=== PATIENT | female | born 1935 | race Caucasian/White ===

== ENCOUNTER 2016-11-27 15:15 | Emergency (ER) | payer MEDICARE, OTHER ==
[~2016-11-27] VITALS: Ht 152.4 cm; Wt 68.2 kg
[~2016-11-27 15:15] MED LIST: AMLO-39 PO; CITA40TA13 PO; DIPH1TAB PO; ECOTRIN PO; INSU100V7 SUBQ; PIOG15TA3 PO; TAM75UDCAP PO; TRAM50TA2 PO; tylenol PM PO
[2016-11-27 15:19] VITALS: BP 148/56; PULSE 80; RESP 16; O2SAT 96
[2016-11-27 15:47] LABS: BASOPHILS % (AUTO) 0.2 % (0-3); MONOCYTES % (AUTO) 7.5 % (4-12); Mean Corpuscular Hemoglobin 32.7 pg (27.0-35.0); Platelet Count 194 bil/L (150-400)
--- NOTE | 2016-11-27 15:53 | DRSVH ---
PROCEDURE: X-RAY CHEST ONE VIEW, PORTABLE ([id number]) INDICATIONS: CHEST PAIN TECHNIQUE: One view of the chest was acquired. COMPARISON: [facility], CR, XR CHEST 2VW, 08/30/2016, 20:28. FINDINGS: Surgical changes and devices: Postoperative changes are present related to a prior median sternotomy. Lungs and pleura: The aeration of the lungs is somewhat to the previous exam. No lobar consolidation , effusion, or pneumothorax is evident. Interstitial prominence within the infrahilar regions is pre sent. There may be pleural calcifications at the diaphragms. No large effusion or pneumothorax is e vident. Mediastinum: Mediastinal contours appear normal. Heart size is normal. There is aortic atheroscler osis. Bones and chest wall: No suspicious bony lesions. Degenerative changes of the imaged osseous struct ures are noted including shoulders and spine. Overlying soft tissues appear unremarkable. IMPRESSION: Mild bibasilar interstitial prominence is similar to the prior study and probably related to chronic lung changes. However, superimposed atypical pneumonia or mild edema cannot be excluded and clinical correlation is recommended. Dictated by: Gary Baugh M.D. on 11/27/2016 at 14:50 Approved by: Gary Baugh M.D. on 11/27/2016 at 14:51
--- NOTE | 2016-11-27 16:01 | ED.REPORT ---
HPI-Chest Pain 40 and Over Date of Service Nov 27, 2016 ED Provider: Jadon Palmer DO Patient is an 81 year old female with an extensive cardiac history who presents to the ED via EMS complaining of an 10-15 minute episode of 10/10 substernal chest pain after eating just prior to arrival. She is now pain free after an episode of belching. Associated symptoms include some abdominal tenderness. She denies vomiting, back pain, diaphoresis, or any other symptoms. She has had similar chest pain previously accompanied by vomiting. Nursing Notes Stated Complaint: CHEST PAIN Chief Complaint: Chest Pain Nursing Notes Reviewed: Yes Allergies: Coded Allergies: Penicillins (Verified Allergy, Severe, HIVES NOT ALLERGIC TO PROPOXYPHENE, 11/27/16) naproxen (Verified Allergy, Severe, RASH, 11/27/16) Sulfa (Sulfonamide Antibiotics) (Verified Allergy, Unknown, 11/27/16) amitriptyline (Verified Adverse Reaction, Severe, SOMNOLENCE, 11/27/16) hydromorphone (Verified Adverse Reaction, Severe, N/V, 11/27/16) Scheduled ([Ecotrin]) 325 MG PO DAILY Amlodipine (Norvasc) 5 Mg Tablet 10 MG PO DAILY Citalopram (Citalopram) 40 Mg Tablet 40 MG PO DAILY Insulin Glargine (Lantus U100 Insulin Vial) 100 Unit/Ml Vial 26 UNIT SUBQ QPM Oseltamivir Phosphate (Tamiflu) 75 Mg Capsule 75 MG PO BID Pioglitazone (Actos) 15 Mg Tablet 15 MG PO BID Scheduled PRN ([tylenol PM]) 325 MG PO PRN PRN PRN For Sleep Diphenoxylate/Atropine 2.5-0.025 mg (Lomotil 2.5-0.025 mg) 1 Each Tablet 1-2 TABLET PO QID PRN PRN For Diarrhea or Loose Stool Tramadol (Tramadol) 50 Mg Tablet 50 MG PO HS PRN PRN For Pain General Time Seen by MD: 16:00 Chief Complaint Chest pain Hx Obtained From: Patient, Other family... Arrived By: Ambulance Sudden in Onset?: Yes Onset Occurred: Just prior to arrival Symptom Duration: 1 - 15 minutes Similar Sx Previous: Yes Risk Factors )( CAD Risk Stratification Known CAD Risk factors N/A )( TAD Risk Stratification HypertensionNo Risk factors reviewed )( PE Risk Stratification No , No , No Previous DVT, No Previous PE Risk factors reviewed Past Medical History Past Medical History Myocardial Infarction Arthritis Reports: Coronary artery disease, Diabetes mellitus, GERD, Hyperlipidemia, Hypertension Reports: Depression Past Surgical History Stent placement x2 AVR - porcine valve CABG x3 Left trigger-thumb Reports: Appendectomy, Cataract surgery, Cholecystectomy, Hysterectomy Smoking History Never Smoker Social History Alcohol Use: Denies alcohol use Drug Use: Denies drug use Other Social History: Good social support, Local resident Ambulatory Status Independent Review of Systems Cardiovascular: Reports: Chest pain GI: Reports: Abdominal pain, Denies: Vomiting Musculoskeletal: Denies: Back pain Skin: Denies Diaphoresis Complete sys rev & neg: except as marked. Physical Exam Initial Vital Signs Vital Signs (First) Date Time Temp Pulse Resp B/P Pulse Ox O2 Delivery O2 Flow Rate FiO2 11/27/16 15:19 36.5 80 16 148/56 96 Room Air Initial VS: Reviewed Head / Eyes: Atraumatic, Normocephalic Neck: Full range of motion Skin: Warm, Dry Neurologic: Alert, Oriented, Nonfocal Psychiatric: Mood/affect normal, Behavior normal, Normal thought content General/Constitutional: Awake, Alert, No acute distress, Well appearing, Well developed Respiratory / Chest: Breath sounds NL, Breath sounds = bilat, No respiratory distress Cardiovascular: Peripheral circulation NL Heart Sounds / Murmur: Positive: Systolic murmur present.. Faint systolic injection murmur Abdomen: Soft Tenderness/Guarding/Rebound: Positive: Tender epigastric (Mild ) Interpretation & Diagnostics Lab Results Interpretation Result Diagram: 11/27/16 1544 11/27/16 1544 Test 11/27/16 15:44 11/27/16 16:53 White Blood Count 8.9th/mm3 (3.8-10.1) Red Blood Count 4.56mil/mm3 (3.90-5.20) Hemoglobin 14.9g/dL (12.0-15.6) Hematocrit 44.7% (35.0-46.0) Mean Corpuscular Volume 98.0fL (81-100) Mean Corpuscular Hemoglobin 32.7pg (27.0-35.0) Mean Corpuscular Hemoglobin Concent 33.3% (32.0-37.0) Red Cell Distribution Width 13.3% (12.3-15.4) Platelet Count 194bil/L (150-400) Neutrophils (%) (Auto) 48.0% (40-74) Lymphocytes (%) (Auto) 43.1% (14-46) Monocytes (%) (Auto) 7.5% (4-12) Eosinophils (%) (Auto) 1.0% (0-5) Basophils (%) (Auto) 0.2% (0-3) D-Dimer 0.76mg/L FEU (<0.50) Sodium Level 138mEq/L (134-144) Potassium Level 3.7mEq/L (3.5-5.2) Chloride Level 96mEq/L (97-108) Carbon Dioxide Level 23mmol/L (18-29) Blood Urea Nitrogen 25mg/dL (8-27) Creatinine 1.41mg/dL (0.57-1.00) Estimat Glomerular Filtration Rate 51mL/min (>59) Glucose Level 142mg/dL (60-99) Calcium Level 10.1mg/dL (8.5-10.1) Magnesium Level 2.0mg/dL (1.6-2.6) Total Bilirubin 0.4mg/dL (0.0-1.2) Aspartate Amino Transf (AST/SGOT) 107U/L (0-50) Alanine Aminotransferase (ALT/SGPT) 39U/L (0-32) Alkaline Phosphatase 95U/L (25-165) Troponin T < 0.010ug/L (0.0-0.011) Total Protein 7.7g/dL (6.4-8.4) Albumin 4.1g/dL (3.4-5.0) Lipase 15U/L (13-60) Hold Goodrich Top Tube Received (Received) ECG Interpretation ECG Interpretation: LBBB rate 77 Time: 15:35 Interpreted by: ED physician X-Ray Chest Interpretation Chest Xray Interpretation: IMPRESSION: Mild bibasilar interstitial prominence is similar to the prior study and probably related to chronic lung changes. However, superimposed atypical pneumonia or mild edema cannot be excluded and clinical correlation is recommended. Dictated by: Gary Baugh M.D. on 11/27/2016 at 14:50 Approved by: Gary Baugh M.D. on 11/27/2016 at 14:51 View: Portable, 1 view Interpretation / Wet Read by: Interpret - Radiologist Re-Eval/Medical Decision Med Decision/Clinical Course I feel that Mrs. Ferrara needs a CT of her chest abdomen and pelvis as well as serial enzymes most likely hospitalization. As it where she has her granddaughter I believe was performing him some sort of plate and she is absolutely going to this. I saw her she was walking out of the hospital. She promises me she will return for the scans and return return for repeat troponin. I certainly could not make her stay and I can completely respect her wanting to be a part of her family's life and I will see her when she gets back. Time of Eval: 16:30 Re-Evaluation/Progress Note: Patient wishes to leave to attend play for grandchild. Will return for addition examination after the play. Counseled Regarding: Diagnosis, Need for follow-up, When/why to return to ED Discharge & Departure Shift Change Sign-Out Response to Therapy: Improved Primary Impression: Chest pain Chest pain type: unspecified Qualified Code: R07.9 - Chest pain, unspecified Additional Impression: Abdominal pain Abdominal location: epigastric Qualified Code: R10.13 - Epigastric pain Disposition: Home Discharge Condition All VS Reviewed: Yes Condition: Stable Referrals: Rahul Webb MD (PCP) Scribe Attestation Portions of this note were transcribed by Chana Olivarez. I, Dr. Palmer personally performed the history, physical exam and medical decision-making; I reviewed and confirmed the accuracy of the information in the transcribed note. Signed by: Chana Olivarez 11/27/16, [id number] copies to: Rahul Webb MD, Todd P DO Nov 27, 2016 16:01 CHANA OLIVAREZ Nov 27, 2016 16:25
[2016-11-27 16:12] LABS: TROPONIN T < 0.010 ug/L (0.0-0.011)
[2016-11-27 16:58] VITALS: BP 151/56; PULSE 82; RESP 24; O2SAT 97
[2016-11-27] MEDS ORDERED: FURO40TA4 PO (23:46)
[2016-11-27] MEDS ORDERED: ATOR80TA PO (23:46)
[2016-11-27] MEDS ORDERED: POTA10TA38 PO (23:46)
[2016-11-27] MEDS ORDERED: ACET-2605 PO (23:54)
[2016-11-27] MEDS ORDERED: ASPI-973 PO (23:54)
[2016-11-27] MEDS ORDERED: NITR0.4T6 SL (23:54)
[2016-11-27] MEDS ORDERED: SENN-133 PO (23:54)
[2016-11-27] MEDS ORDERED: OMEP40CA36 PO (23:54)
[2016-11-27] MEDS ORDERED: MELA1TAB16 PO ×2 (23:54→23:56)
[2016-11-27] MEDS ORDERED: CALC600T20 PO (23:54)
[2016-11-27] MEDS ORDERED: INSU100I18 SUBQ (23:54)
[2016-11-27] MEDS ORDERED: MV-M1TAB38 PO (23:54)
[2016-11-27] MEDS ORDERED: ACET325T51 PO (23:54)
[2016-11-27] MEDS ORDERED: DOCU250C2 PO (23:54)
== END 2016-11-27 16:59 | disposition home or self-care (01) ==
LOC: SED 15:15 → EDBD 15:15 → SED 16:59
DX: R07.9 Chest pain, unspecified (principal); R10.13 Epigastric pain; I25.2 Old myocardial infarction; I25.10 Atherosclerotic heart disease of native coronary artery without angina pectoris; E11.9 Type 2 diabetes mellitus without complications; K21.9 Gastro-esophageal reflux disease without esophagitis; E78.5 Hyperlipidemia, unspecified; I10 Essential (primary) hypertension; F32.9 Major depressive disorder, single episode, unspecified; Z95.818 Presence of other cardiac implants and grafts; Z95.1 Presence of aortocoronary bypass graft; Z95.2 Presence of prosthetic heart valve; Z79.4 Long term (current) use of insulin; Z88.0 Allergy status to penicillin; Z88.6 Allergy status to analgesic agent; Z88.2 Allergy status to sulfonamides; Z88.5 Allergy status to narcotic agent; Z88.8 Allergy status to other drugs, medicaments and biological substances

== ENCOUNTER 2016-11-27 21:41 | Observation (INO) | payer MEDICARE, OTHER ==
[~2016-11-27] VITALS: Ht 152.4 cm; Wt 71.3 kg
[2016-11-27 21:49] VITALS: BP 139/67; PULSE 84; RESP 20; O2SAT 100
--- NOTE | 2016-11-27 22:00 | ED.REPORT ---
HPI-Abd Pain F 40 and Over Date of Service Nov 27, 2016 ED Provider: Jadon Palmer Patient is an 81 year old female who returns to the ED after having to leave before her imaging earlier this evening for chest pain. She had a 10-15 minute episode of severe substernal chest pain without vomiting, diaphoresis, or any other symptoms. He symptoms resolved after an episode of belching. Her pain has not returned since the initial resolution. Please review earlier note. Nursing Notes Stated Complaint: FOLLOW UP CHEST PAIN FROM EARLIER TODAY Chief Complaint: Chest Pain Nursing Notes Reviewed: Yes Allergies: Coded Allergies: Penicillins (Verified Allergy, Severe, HIVES NOT ALLERGIC TO PROPOXYPHENE, 11/27/16) naproxen (Verified Allergy, Severe, RASH, 11/27/16) Sulfa (Sulfonamide Antibiotics) (Verified Allergy, Unknown, 11/27/16) amitriptyline (Verified Adverse Reaction, Severe, SOMNOLENCE, 11/27/16) hydromorphone (Verified Adverse Reaction, Severe, N/V, 11/27/16) Scheduled ([Ecotrin]) 325 MG PO DAILY Amlodipine (Norvasc) 5 Mg Tablet 10 MG PO DAILY Citalopram (Citalopram) 40 Mg Tablet 40 MG PO DAILY Insulin Glargine (Lantus U100 Insulin Vial) 100 Unit/Ml Vial 26 UNIT SUBQ QPM Oseltamivir Phosphate (Tamiflu) 75 Mg Capsule 75 MG PO BID Pioglitazone (Actos) 15 Mg Tablet 15 MG PO BID Scheduled PRN ([tylenol PM]) 325 MG PO PRN PRN PRN For Sleep Diphenoxylate/Atropine 2.5-0.025 mg (Lomotil 2.5-0.025 mg) 1 Each Tablet 1-2 TABLET PO QID PRN PRN For Diarrhea or Loose Stool Tramadol (Tramadol) 50 Mg Tablet 50 MG PO HS PRN PRN For Pain General Time Seen by MD: 21:59 Chief Complaint Other (Chest pain) Hx Obtained From: Patient Arrived By: Walk-in Sudden in Onset?: Yes Recent Healthcare: Recent doctor visit, Recent testing Risk Factors )( AAA Risk Stratification HypertensionNo Smoking Risk factors reviewed Past Medical History Past Medical History Myocardial Infarction Arthritis Reports: Coronary artery disease, Diabetes mellitus, GERD, Hyperlipidemia, Hypertension Reports: Depression Past Surgical History Stent placement x2 AVR - porcine valve CABG x3 Left trigger-thumb Reports: Appendectomy, Cataract surgery, Cholecystectomy, Hysterectomy Smoking History Never Smoker Social History Alcohol Use: Denies alcohol use Drug Use: Denies drug use Other Social History: Good social support, Local resident Ambulatory Status Independent Review of Systems Cardiovascular: Reports: Chest pain GI: Denies: Nausea, Vomiting Musculoskeletal: Denies: Extremity pain Complete sys rev & neg: except as marked. Skin: Denies Diaphoresis Physical Exam Vital Signs Vital Signs (First) Date Time Temp Pulse Resp B/P Pulse Ox O2 Delivery O2 Flow Rate FiO2 11/27/16 21:49 36.1 84 20 139/67 100 Room Air Initial VS: Reviewed Head / Eyes: Atraumatic, Normocephalic Neck: Full range of motion Skin: Warm, Dry Neurologic: Alert, Oriented, Nonfocal Psychiatric: Mood/affect normal, Behavior normal, Normal thought content General/Constitutional: Awake, Alert, Well developed Respiratory / Chest: Breath sounds NL, Breath sounds = bilat, No respiratory distress Cardiovascular: Heart rate NL, Peripheral circulation NL Faint systolic injection murmur Abdomen: Soft, Non-tender Back: Inspection NL Interpretation & Diagnostics Lab Results Interpretation Result Diagram: 11/27/16222611/27/162226 Test 11/27/16 22:27 White Blood Count 6.9th/mm3 (3.8-10.1) Red Blood Count 4.13mil/mm3 (3.90-5.20) Hemoglobin 13.5g/dL (12.0-15.6) Hematocrit 40.3% (35.0-46.0) Mean Corpuscular Volume 97.6fL (81-100) Mean Corpuscular Hemoglobin 32.7pg (27.0-35.0) Mean Corpuscular Hemoglobin Concent 33.5% (32.0-37.0) Red Cell Distribution Width 13.2% (12.3-15.4) Platelet Count 195bil/L (150-400) Neutrophils (%) (Auto) 58.6% (40-74) Lymphocytes (%) (Auto) 33.0% (14-46) Monocytes (%) (Auto) 7.0% (4-12) Eosinophils (%) (Auto) 1.0% (0-5) Basophils (%) (Auto) 0.3% (0-3) Sodium Level 138mEq/L (134-144) Potassium Level 4.0mEq/L (3.5-5.2) Chloride Level 98mEq/L (97-108) Carbon Dioxide Level 26mmol/L (18-29) Blood Urea Nitrogen 25mg/dL (8-27) Creatinine 1.38mg/dL (0.57-1.00) Estimat Glomerular Filtration Rate 52mL/min (>59) Glucose Level 76mg/dL (60-99) Calcium Level 9.2mg/dL (8.5-10.1) Magnesium Level 1.9mg/dL (1.6-2.6) Total Bilirubin 0.2mg/dL (0.0-1.2) Aspartate Amino Transf (AST/SGOT) 235U/L (0-50) Alanine Aminotransferase (ALT/SGPT) 134U/L (0-32) Alkaline Phosphatase 136U/L (25-165) Troponin T 0.010ug/L (0.0-0.011) Total Protein 7.0g/dL (6.4-8.4) Albumin 3.8g/dL (3.4-5.0) Hold Contreras Top Tube Received (Received) ECG Interpretation ECG Interpretation: Sinus rate 76 LBBB Time: 22:14 Interpreted by: ED physician ECG Interpretation: Sinus rate 72 LBBB Time: 23:38 Interpreted by: ED physician CT Chest Interpretation CONCLUSION: No evidence of pulmonary embolism or dissection. Subsegmental atelectasis in the lung base. Coronary artery disease. Curtis Mixon M.D. Study type: CT pulm angiogram Interpretation / Wet Read by: Interpret - Radiologist CT Abd / Pelvis Interpretation CONCLUSION: No acute intra-abdominal abnormality cholecystectomy. Scattered diverticulosis without diverticulitis. Hysterectomy. Curtis Mixon M.D. Study type: Abdominal CT IV contrast Interpretation / Wet Read by: Interpret - Radiologist Re-Eval/Medical Decision Med Decision/Clinical Course Repeat EKG shows left bundle without any ST changes from prior EKGs. Nabila had a return of the symptoms and she became profoundly diaphoretic. EKG during this spell still was reassuring. Her blood sugar was I believe 74. She drinks juice anyways however the diaphoresis resolved after about 10 minutes. Taking, her risk factors and age will admit her for observation for chest pain and diaphoresis. Re-Evaluation/Progress : Time of Eval: 23:29 )( Re-Eval Abdomen: Soft Re-Evaluation/Progress Note: While sitting in bed quietly, she became diaphoretic and her chest pain returned. Her blood sugar was 74. Discharge & Departure Shift Change Sign-Out Response to Therapy: Improved Primary Impression: Chest pain Chest pain type: unspecified Qualified Code: R07.9 - Chest pain, unspecified Additional Impression: Diaphoresis Disposition: ADMITTED TO HOSPITAL Referrals: Rahul Webb MD (PCP) copies to: Rahul Webb MD, Todd P DO Nov 27, 2016 21:59 CHANA OLIVAREZ Nov 27, 2016 22:08
[2016-11-27] MEDS ORDERED: 0.9% Sodium Chloride 500 ML IV ONE (22:10)
[2016-11-27 22:35] LABS: BASOPHILS % (AUTO) 0.3 % (0-3); Mean Corpuscular Hemoglobin 32.7 pg (27.0-35.0); Mean Corpuscular Volume 97.6 fL (81-100); NEUTROPHILS % (AUTO) 58.6 % (40-74); Platelet Count 195 bil/L (150-400)
[2016-11-27] MEDS: Sodium Chloride LOK Flush 10 mL Syringe IVFLUSH SCH (23:02)
[2016-11-27 23:08] LABS: Magnesium 1.9 mg/dL (1.6-2.6); TROPONIN T 0.01 ug/L (0.0-0.011)
[2016-11-27] MEDS ORDERED: FURO40TA4 PO (23:46)
[2016-11-27] MEDS ORDERED: ATOR80TA PO (23:46)
[2016-11-27] MEDS ORDERED: POTA10TA38 PO (23:46)
[2016-11-27] MEDS ORDERED: OMEP40CA36 PO (23:54)
[2016-11-27] MEDS ORDERED: ACET-2605 PO (23:54)
[2016-11-27] MEDS ORDERED: ASPI-973 PO (23:54)
[2016-11-27] MEDS ORDERED: ACET325T51 PO (23:54)
[2016-11-27] MEDS ORDERED: INSU100I18 SUBQ (23:54)
[2016-11-27] MEDS ORDERED: SENN-133 PO (23:54)
[2016-11-27] MEDS ORDERED: MELA1TAB16 PO ×2 (23:54→23:56)
[2016-11-27] MEDS ORDERED: DOCU250C2 PO (23:54)
[2016-11-27] MEDS ORDERED: CALC600T20 PO (23:54)
[2016-11-27] MEDS ORDERED: NITR0.4T6 SL (23:54)
[2016-11-27] MEDS ORDERED: MV-M1TAB38 PO (23:54)
[2016-11-28] VITALS (7 sets, daily range): BP systolic 137–166; BP diastolic 52–71; PULSE 63–87; RESP 18–20; O2SAT 93–96
[2016-11-28] MEDS ORDERED: Ondansetron 2 mg/mL 2 mL Inj IVPUSH PRN (00:20)
[2016-11-28] MEDS ORDERED: Alum-Mag Hydrox-Simeth 30 mL Suspension PO PRN (00:20)
[2016-11-28] MEDS ORDERED: Polyethylene Glycol (PEG) 17 Gm Powder PO PRN (00:20)
[2016-11-28] MEDS ORDERED: Glucose 40% Oral Gel 15 Gm Tube PO PRN (00:50)
[2016-11-28] MEDS: 0.9% Sodium Chloride 1,000 ML IV SCH ×2 (01:44→12:46)
[2016-11-28] MEDS: Heparin 5,000 Unit/mL Inj SUBQ SCH ×2 (01:44→08:40)
--- NOTE | 2016-11-28 02:01 | PCM.HPMED ---
Subjective Date of Service Nov 28, 2016 Primary Provider: Admitting Physician: Kaitlin Linares DO Primary Care Physician: Rahul Webb MD Attending Physician: Kaitlin Linares DO Admit Status: From the Emergency Department Chief Complaint: Chest pain History of Present Illness: Patient is an 81 y.o. female with past medical history of extensive cardiac history including ND s/p Stent x2, AVR porcine vlave, CABG x3. She initially presented to the ED via EMS complaining of an 10-15 minute episode of 10/10 substernal chest pain after eating just prior to arrival. At time of arrival to ED she was pain free after an episode of belching. Patient stated that her grandchild was having a recital and she absolutely had to attend to attend, initial work up was done prior to leaving AMA, ED physician saw patient as she walked out the door and advised patient to return to ED for serial repeat of troponin, CT of chest and abdomen. Associated symptoms included some abdominal tenderness. She denies vomiting, back pain, diaphoresis, or any other symptoms. Her initial troponin was negative, EKG showed no signs of acute ischemic heart disease. Upon return to ED repeat troponin negative, chest and abdomen CT negative for acute disease. At time of examination patient stated that she is currently pain free, has not had another episode of pain. She stated that initial pain was similar to her pain experienced when she passed a gallstone. Localized pain to epigastrium, denied radiation, nausea, vomiting, syncope, change in vision. During return to ED patient had a return of symptoms and became diaphoretic, EKG was normal, BG checked and was <70, patient drank orange juice and symptoms resolved after 10 minutes. She has had similar chest pain previously accompanied by vomiting associated with passing a gallstone. Review of Systems: A comprehensive review of systems was conducted with the patient and found to be negative except as above in the History of Present Illness. Allergies Coded Allergies: Penicillins (Verified Allergy, Severe, HIVES NOT ALLERGIC TO PROPOXYPHENE, 11/27/16) naproxen (Verified Allergy, Severe, RASH, 11/27/16) Sulfa (Sulfonamide Antibiotics) (Verified Allergy, Unknown, 11/27/16) amitriptyline (Verified Adverse Reaction, Severe, SOMNOLENCE, 11/27/16) hydromorphone (Verified Adverse Reaction, Severe, N/V, 11/27/16) Home Medications ([Ecotrin]) 325 MG PO DAILY Amlodipine (Norvasc) 5 Mg Tablet 10 MG PO DAILY Citalopram (Citalopram) 40 Mg Tablet 40 MG PO DAILY Insulin Glargine (Lantus U100 Insulin Vial) 100 Unit/Ml Vial 26 UNIT SUBQ QPM Oseltamivir Phosphate (Tamiflu) 75 Mg Capsule 75 MG PO BID Pioglitazone (Actos) 15 Mg Tablet 15 MG PO BID ([tylenol PM]) 325 MG PO PRN PRN PRN For Sleep Diphenoxylate/Atropine 2.5-0.025 mg (Lomotil 2.5-0.025 mg) 1 Each Tablet 1-2 TABLET PO QID PRN PRN For Diarrhea or Loose Stool Tramadol (Tramadol) 50 Mg Tablet 50 MG PO HS PRN PRN For Pain PMH Myocardial Infarction Arthritis Coronary artery disease, Diabetes mellitus, GERD, Hyperlipidemia, Hypertension Depression Surgical History Stent placement x2 AVR - porcine valve CABG x3 Left trigger-thumb Reports: Appendectomy, Cataract surgery, Cholecystectomy, Hysterectomy Family History Father unknown medical history Mother of heart disease Social History Hx Alcohol Use: No Hx Substance Use: No Hx Tobacco Use: No Smoking Status: Never Smoker Exam Vital Signs Vital Sign - Last Date Time Temp Pulse Resp B/P Pulse Ox O2 Delivery O2 Flow Rate FiO2 11/28/16 01:32 36.6 72 18 166/70 95 Room Air Intake and Output 11/27/16 11/27/16 11/28/16 Cumulative From/Thru 15:00 23:00 07:00 11/27/16 21:49 - 11/28/16 01:34 Intake Total 1000 ml 1000 ml Balance 1000 ml 1000 ml Intake IV Total 1000 ml 1000 ml Exam General: No acute distress, well-developed, well-nourished, appropriately interactive, obese HEENT: Normocephalic, atraumatic. External ears without defect. Pupils equal, round, and reactive to light and accommodation. Anicteric sclerae, moist conjunctivae, and no lid lag. Oropharynx free of erythema and cobble stoning with moist mucosa. Neck: Supple with full range of motion. No jugular venous distension. No bruits. No lymphadenopathy or thyromegaly. Cardiovascular: Systolic ejection murmur heart at RSB grade II/, Regular rate and rhythm with no rubs, or gallops appreciated Pulmonary: Clear to auscultation bilaterally with no crackles, wheezes, or rhonchi. Normal respiratory effort with no use of accessory muscles. Abdomen: Tender epigastrium, Bowel tones present. Soft, nondistended. No hepatosplenomegaly or masses appreciated. Extremities: No clubbing, cyanosis, edema, or lymphadenopathy appreciated. Skin: Normal temperature, turgor, and texture; no rash, ulcers, or subcutaneous nodules appreciated. Neurological: Cranial nerves grossly intact. Normal muscle strength, tone, and bulk. Reflexes, coordination, and sensory function within normal limits. No known gait impairment. Psychiatric: Normal mood and affect. Alert and oriented to person, place, and time. Lymphatic: no lymphadenopathy noted on exam Lab and Diagnostics Result Diagram: 11/27/16222611/27/162226 X-Rays, CTs and MRIs Chest Xray Interpretation: IMPRESSION: Mild bibasilar interstitial prominence is similar to the prior study and probably related to chronic lung changes. However, superimposed atypical pneumonia or mild edema cannot be excluded and clinical correlation is recommended. Dictated by: Gary Baugh M.D. on 11/27/2016 at 14:50 Approved by: Gary Baugh M.D. on 11/27/2016 at 14:51 View: Portable, 1 view Interpretation / Wet Read by: Interpret - Radiologist CT Chest Interpretation CONCLUSION: No evidence of pulmonary embolism or dissection. Subsegmental atelectasis in the lung base. Coronary artery disease. Curtis Mixon M.D. Study type: CT pulm angiogram Interpretation / Wet Read by: Interpret - Radiologist CT Abd / Pelvis Interpretation CONCLUSION: No acute intra-abdominal abnormality cholecystectomy. Scattered diverticulosis without diverticulitis. Hysterectomy. Curtis Mixon M.D. Study type: Abdominal CT IV contrast Interpretation / Wet Read by: Interpret - Radiologist 12-lead ECG ECG Interpretation: Sinus rate 76 LBBB Time: 22:14 Interpreted by: ED physician ECG Interpretation: Sinus rate 72 LBBB Time: 23:38 Interpreted by: ED physician Assessment & Plan Patient is an 81 y.o. female with past medical history of extensive cardiac history including ND s/p Stent x2, AVR porcine vlave, CABG x3. Admitted for treatment of chest pain, r/o cardiac etiology. 1. Chest pain, acute - Troponin serial < 0.01, likely stable angina, less likely ACS, NSTEMI - CT chest and abdomen negative for acute disease - Patient will need serial troponin Q6 - Last ECHO 1 year ago, repeat ECHO in AM - ASA given in ED, continue ASA 81 mg - Beta tyrell not given due to stress test in AM - Stress test in AM - PRN EKG for chest pain - PRN Nitroglycerin SL for chest pain - PRN Morphine for Chest pain - Repeat BMP in AM - Repeat CMP in AM - Lipid profile ordered - Cautious IVF hydration NS @ 80 mls/hr, Encourage PO fluid intake - QTC prolonged 540 hold QTC prolonging medications - DC Zofran - Hold Citalopram -hgbA1c and lipid panel pending 2. Elevated LFT, acute - Patient has history of cholecystectomy due to gallstones - CT abdomen and pelvis negative for acute disease - Abdominal US for AM ordered - Repeat CMP in AM Chronic conditions Arthritis - PRN tylenol Coronary artery disease, - Continue home meds Diabetes mellitus, - Low BG in ED hold HS lantus, start correctional scale low dose GERD, - Famotidine Hyperlipidemia, -Continue home med Hypertension continue home med Depression Hold home med CODE STATUS FULL CODE DVT: SQ heparin GI: Famotidine Patient is admitted under observation status with expected length of stay less than 2 midnights due to severity of presenting symptoms, risk of adverse event Pain Evaluation: Adequate Pain Control GI Prophylaxis: H2 tyrell Resuscitation Status: CPR: Attempt Resuscitation Attending Statement The patient was seen and examined together with house staff on 11/28/2016 and I agree with the history, exam and plan as outlined in the note above. PATRICE RAMIREZ DO Nov 28, 2016 02:00 Kaitlin Linares DO Nov 28, 2016 04:58
--- NOTE | 2016-11-28 02:14 | NUR ---
Admission Pt arrived to room 3022 alert and oriented x3, conversing in full sentences, ambulating with steady gait, and with minor complaints of abdominal pain. Reports pain is only occasional and is tolerable with out medication. Pt was oriented to room, call light bed and policies. Pt was place don telemetry and IV fluids were started. Pt has had no complaints of chest discomforts so far since arriving. Pt told to be NPO, Pt verbalized understanding.
[2016-11-28 04:58] LABS: APPEARANCE,URINE CLEAR (CLEAR,HAZY); COLOR,URINE STRAW (YELLOW); OCCULT BLOOD,URINE NEGATIVE (NEGATIVE); PH,URINE 7.5 (5.0-8.0); UROBILINOGEN,URINE NORMAL (NORMAL)
[2016-11-28 07:13] LABS: BASOPHILS % (AUTO) 0.2 % (0-3); EOSINOPHILS % (AUTO) 2.3 % (0-5); MONOCYTES % (AUTO) 9.3 % (4-12); Mean Corpuscular Hemoglobin 32.4 pg (27.0-35.0); Mean Corpuscular Volume 98.5 fL (81-100); NEUTROPHILS % (AUTO) 49.6 % (40-74); Platelet Count 173 bil/L (150-400)
[2016-11-28 07:25] LABS: INR 0.97 ratio
[2016-11-28] MEDS: Insulin LISPRO 300 Unit/3 mL Inj SUBQ SCH ×2 (08:00→12:12)
[2016-11-28] MEDS ORDERED: Famotidine Inj 20 MG in IV Premix 1 EACH IV SCH (08:30)
[2016-11-28] MEDS: Sodium Chloride LOK Flush 10 mL Syringe IVFLUSH SCH (08:41)
--- NOTE | 2016-11-28 08:58 | DRSVH ---
PROCEDURE: CT ABDOMEN AND PELVIS WITH CONTRAST ([id number]) INDICATIONS: chest pain and upper abdominal pain TECHNIQUE: After the administration of intravenous contrast, 5 mm thick sections acquired from the diaphragm to the symphysis. 5 mm coronal and sagittal reformats were acquired. For radiation dose reduction, the following was used: automated exposure control, adjustment of mA and/or kV according to patient siz e. COMPARISON: [facility], CT, ABDOMEN W/O CONTRAST, 06/14/2014, 11:40. FINDINGS: Image quality: Excellent. ABDOMEN: Lung bases: Lung bases are clear of acute opacities. 4 mm nodule in the right lung base is stable co mpared to prior CT scan. Interstitial thickening in the lung bases is stable compared to prior CT sca n.. Heart size is normal. Prostatic stations noted in the visualized coronary vasculature. Solid organs: Liver and spleen are normal in size and enhancement. Gallbladder is surgically absent .. Biliary system is non dilated. Pancreas enhances normally. No adrenal nodules. Kidneys demonst rate normal size and enhancement, without hydronephrosis. Peritoneum and bowel: Bowel loops demonstrate normal wall thickness and caliber. Scattered colonic d iverticuli are noted without evidence of diverticulitis. No free fluid or air. Nodes and vessels: No retroperitoneal or mesenteric adenopathy by size criteria. Aorta and inferior vena cava are normal in size. Scattered atherosclerotic desiccation is noted in the abdominal pelvic vasculature. Miscellaneous: No ventral hernias. PELVIS: Genitourinary: Bladder wall thickness is normal. Uterus is surgically absent. Miscellaneous: No inguinal hernias or adenopathy. Bones: No suspicious bony lesions. No vertebral body compression fractures. Degenerative disc disea se and facet arthropathy are noted in the spine. IMPRESSION: 1. No acute disease process. 2. Colonic diverticulosis no evidence of diverticulitis. 3. No free fluid or air. 4. No dilated loops of bowel. 5. Status post CABG procedure, cholecystectomy and hysterectomy. Dictated by: Sarah Navarro MD, PhD on 11/28/2016 at 8:32 Approved by: Sarah Navarro MD, PhD on 11/28/2016 at 8:57
--- NOTE | 2016-11-28 09:08 | DRSVH ---
PROCEDURE: CT ANGIO CHEST PULMONARY EMBOLISM ([id number]) INDICATIONS: chest pain and upper abdominal pain TECHNIQUE: After the administration of intravenous contrast, 2 mm thick sections acquired from the pulmonary api ronal to the posterior costophrenic angles. 3-dimensional maximum intensity projection (MIP) coronal a nd sagittal reformats were then acquired through the thorax. For radiation dose reduction, the follo wing was used: automated exposure control, adjustment of mA and/or kV according to patient size. COMPARISON: [facility], CT, CT CHEST WO CON, 12/21/2015, 21:38. FINDINGS: Image quality: Excellent. Pulmonary arteries: Pulmonary arteries are normal in size, and demonstrate no intraluminal filling d efects to suggest central pulmonary embolism. Lungs and pleura: Lungs are clear. Scattered prominence of the interstitium noted in the lungs bilat erally not severely change compared to prior examination likely represents chronic disease process. 3 mm subpleural nodule in the right upper lobe (series 5, image 10) is stable compared to prior examin ation. 4 mm nodule in the right lung base (series 5, image 26( is stable compared to prior examinatio n. No pleural effusions or pneumothorax. Central and peripheral airways are patent. Mediastinum: Heart size is normal, without pericardial effusion. Atherosclerotic calcifications note d in the aorta, great vessels and the coronary vasculature. Postsurgical changes compatible prior CAB G procedure are noted. No mediastinal or hilar adenopathy. Thoracic aorta is normal in caliber and enhancement. Esophagus is normal in caliber, without hiatal hernia. Bones and chest wall: No suspicious bony lesions. Ribs and thoracic spine appear intact throughout. Thyroid gland is within normal limits where visualized. No axillary or supraclavicular adenopathy. Abdomen: Small hiatal hernia is noted. Visualized upper abdominal solid organs appear normal in the e philomena arterial phase of enhancement. IMPRESSION: No pulmonary embolus. Dictated by: Sarah Navarro MD, PhD on 11/28/2016 at 8:57 Approved by: Sarah Navarro MD, PhD on 11/28/2016 at 9:07
--- NOTE | 2016-11-28 10:28 | NUR ---
Case Management: Attempted to give orona but patient was off the floor. Will try again laterr. CPerryRNCCM.
--- NOTE | 2016-11-28 15:21 | DRSVH ---
[facility] [address] [place] [address] Echocardiogram Report Name: MORA HALL MStudy Date: 11/28/2016 Height: 60 in Hospital Exam Location: [facility] Weight: 157 lb Gender: Female BSA: 1.7 m2 : 1935 Age: 81 yrs BP: 163/71 mmHg Reason For Study: CHEST PAIN Ordering Physician: HOSPITALIST YESENIAerformed By: Jose Luis Smith Referring Physician: April VACA Interpretation Summary The ejection fraction is estimated to be 55-60%. There is a bioprosthetic aortic valve. The prosthetic aortic valve function is normal. The right ventricular systolic pressure is estimated at 25 mmHg assuming a right atrial pressure of 8 mm Hg. Compared to the prior echo report on 2015, there is no significant change. Procedure: A two-dimensional transthoracic echocardiogram with color flow and Doppler was performed. The study quality was technically adequate. Comparison is made with the echocardiogram of 12/22/15. The patient was in normal sinus rhythm during the exam. Left Ventricle: The left ventricle is normal in size. There is normal left ventricular wall thickness. Trabeculae near apex are visualized. No thrombus is observed. The ejection fraction is estimated to be 55-60%. Septal motion is consistent with post-operative state. Right Ventricle: The right ventricle is normal size. Right ventricular systolic function is borderline reduced. Atria: The left atrium is mildly dilated. Right atrial size is normal. The interatrial septum is intact with no evidence for an atrial septal defect. Mitral Valve: There is moderate mitral annular calcification. There is mild mitral regurgitation. Aortic Valve: There is a bioprosthetic aortic valve. The prosthetic aortic valve function is normal. No aortic regurgitation is present. Tricuspid Valve: The tricuspid valve is normal in structure and function. There is trace tricuspid regurgitation. The right ventricular systolic pressure is estimated at 25 mmHg assuming a right atrial pressure of 8 mm Hg. Pulmonic Valve: The pulmonic valve is normal in structure and function. There is trace pulmonic regurgitation. Great Vessels: The aortic root is normal size. The dimensions of the ascending aorta are normal. The pulmonary artery is normal size. The IVC is of normal diameter and collapses less than 50% with a sniff. This suggests a right atrial pressure of 8 mm Hg. Pericardium/ Pleura There is no pericardial effusion. There is no pleural effusion. MMode/2D Measurements & Calculations LVIDd: 4.0 cm LA dimension: 4.3 cm RA long axis LVOT diam LVIDs: 2.3 cm FS: 41.2 % LA A2 area: 20.2 cm RA area Ao root diam EPSS: 0.87 cm LA A4 area: 18.6 cm IVSd: 1.1 cm LA length (vol): 5.0 cm : 13.1 cm asc Aorta LVPWd: 1.1 cm LA vol: 63.3 ml RA vol: 36.2 mlDiam: 2.9 cm LA vol index RA : 21.5 mm2 IVC diam: 1.6 cm LV godinez. diameter/BSA LV sys. diameter/BSA RVD1 (basal) RVD2 (mid) (cm/m^2): 2.4 (cm/m^2): 1.4 : 3.5 cm Doppler Measurements & Calculations Ao V2 max MV E max vlad MV E/A: 0.73 TR max vlad : 249.6 cm/sec : 98.9 cm/sec Med Peak E' Vlad : 204.8 cm/sec Ao max P.9 mmHg MV A max vlad TR max PG Ao mean P.5 mmH.2 cm/sec E/E' med: 25.9 : 16.8 mmHg LVOT Max Vlad Lat Peak E' Vlad PA V2 max : 117.4 cm/sec MVA(VTI): 2.0 cm2 : 89.6 cm/sec E/E' lat: 23.9 PA mean PG WILLIAM(I,D): 1.2 cm E/e' average sev ratio: 0.51 PA Accel Time Pulm A Revs Dur : 0.10 sec MV A dur : 0.14 sec MV V2 mean Ao V2 mean LV V1 max PG PA V2 mean : 70.5 cm/sec : 183.9 cm/sec : 61.2 cm/sec MV mean P.5 mmHg Ao V2 VTI: 56.1 cm LV V1 VTI PA pr(Accel) MV V2 VTI: 34.8 cm : 28.5 cm : 39.1 mmHg MV dec time: 0.25 secAVA(V,D): 1.1 cm2 WILLIAM indexed to BSA Pulm A Revs Dur - MV A (cm^2/m^2): 0.73 Dur: -0.04 msec Electronically signed by: Esa Roca on Reading Physician:11/28/2016 03:20 PM
--- NOTE | 2016-11-28 15:43 | PCM.DIMED ---
Discharge Instructions Date of Service Nov 28, 2016 Dates of Hospitalization Nov 28, 2016 at 00:49 Discharge Diagnosis Discharge Diagnosis 1. Chest pain, acute. present on admission. resolved - unclear etiology but ruled out for acute myocardial infarction and with negative cardiac workup - CT chest and abdomen negative for acute disease 2. Elevated liver enzymes, acute, present on admission. Improving but not resolved. - will need close followup with primary care provider to ensure resolution Medication Instructions Resume home medications as before Diet Low fat, Low Sodium, Heart Healthy Activity No restrictions Call your provider Fever or Chills, Shortness of breath, Bleeding, Chest pain, Vomitting Patient Instructions Seek immediate medical attention if any new or worsening signs or symptoms occur. Follow-up plan 1. Followup with primary care provider within one week. Follow-up Provider: Rahul Webb MD, Masoud Nov 28, 2016 15:43
--- NOTE | 2016-11-28 15:55 | NUR ---
Discharge Pt discharged home with daughter via private vehicle. Pt alert and oriented, able to make needs known, verbalized understanding of discharge and follow up instructions, person belongings accounted for and left with pt.
--- NOTE | 2016-11-28 16:44 | PCM.DC.MED ---
Discharge Summary Date of Service Nov 28, 2016 Dates of Hospitalization Date of Hospital Admission Nov 28, 2016 at 00:49 Date of Discharge: Nov 28, 2016 Providers: Admitting Physician: Kaitlin Linares DO Primary Care Physician: Rahul Webb MD Attending Physician: Kaitlin Linares DO Diagnosis at Time of Discharge Diagnosis at Time of Discharge 1. Chest pain, acute. present on admission. resolved - unclear etiology but ruled out for acute myocardial infarction and with negative cardiac workup - CT chest and abdomen negative for acute disease 2. Elevated liver enzymes, acute, present on admission. Improving but not resolved. - will need close followup with primary care provider to ensure resolution Procedures XRay, CTs & MRIs Chest Xray Interpretation: IMPRESSION: Mild bibasilar interstitial prominence is similar to the prior study and probably related to chronic lung changes. However, superimposed atypical pneumonia or mild edema cannot be excluded and clinical correlation is recommended. Dictated by: Gary Baugh M.D. on 11/27/2016 at 14:50 Approved by: Gary Baugh M.D. on 11/27/2016 at 14:51 View: Portable, 1 view Interpretation / Wet Read by: Interpret - Radiologist CT Chest Interpretation CONCLUSION: No evidence of pulmonary embolism or dissection. Subsegmental atelectasis in the lung base. Coronary artery disease. Curtis Mixon M.D. Study type: CT pulm angiogram Interpretation / Wet Read by: Interpret - Radiologist CT Abd / Pelvis Interpretation CONCLUSION: No acute intra-abdominal abnormality cholecystectomy. Scattered diverticulosis without diverticulitis. Hysterectomy. Curtis Mixon M.D. Study type: Abdominal CT IV contrast Interpretation / Wet Read by: Interpret - Radiologist ECG 12 Lead ECG Interpretation: Sinus rate 76 LBBB Time: 22:14 Interpreted by: ED physician ECG Interpretation: Sinus rate 72 LBBB Time: 23:38 Interpreted by: ED physician Cardiac Echo Impression Date of Service: 11/28/16 0500 Echocardiogram Report Interpretation Summary The ejection fraction is estimated to be 55-60%. There is a bioprosthetic aortic valve. The prosthetic aortic valve function is normal. The right ventricular systolic pressure is estimated at 25 mmHg assuming a right atrial pressure of 8 mm Hg. Compared to the prior echo report on 2015, there is no significant change. Electronically signed by: Esa Roca on Reading Physician:11/28/2016 03:20 PM Brief History As noted in H&P by Dr. Delgadillo: Patient is an 81 y.o. female with past medical history of extensive cardiac history including ND s/p Stent x2, AVR porcine vlave, CABG x3. She initially presented to the ED via EMS complaining of an 10-15 minute episode of 10/10 substernal chest pain after eating just prior to arrival. At time of arrival to ED she was pain free after an episode of belching. Patient stated that her grandchild was having a recital and she absolutely had to attend to attend, initial work up was done prior to leaving AM, ED physician saw patient as she walked out the door and advised patient to return to ED for serial repeat of troponin, CT of chest and abdomen. Associated symptoms included some abdominal tenderness. She denies vomiting, back pain, diaphoresis, or any other symptoms. Her initial troponin was negative, EKG showed no signs of acute ischemic heart disease. Upon return to ED repeat troponin negative, chest and abdomen CT negative for acute disease. At time of examination patient stated that she is currently pain free, has not had another episode of pain. She stated that initial pain was similar to her pain experienced when she passed a gallstone. Localized pain to epigastrium, denied radiation, nausea, vomiting, syncope, change in vision. During return to ED patient had a return of symptoms and became diaphoretic, EKG was normal, BG checked and was <70, patient drank orange juice and symptoms resolved after 10 minutes. She has had similar chest pain previously accompanied by vomiting associated with passing a gallstone. Hospital Course 1. Chest pain, acute. poa. resolved - ruled out for ACS by negative Trop - Echo without sig change compared to prior (as noted above) - stress test negative - CTA negative for PE - CT chest and abdomen negative for acute disease - pt denies any symptoms and requesting d/c home 2. Elevated LFT, acute. poa - unclear etiology - improving - Patient has history of cholecystectomy due to gallstones - CT abdomen and pelvis negative for acute disease - pt requesting d/c home and thus recommended to f/u w/ PCP to ensure resolution of transaminitis. Chronic and stable conditions Arthritis - PRN tylenol Coronary artery disease, - Continue home meds Diabetes mellitus, stable GERD, - Famotidine Hyperlipidemia, -Continue home med Hypertension continue home med Depression continue home med by day of d/c lungs CTA bilat. CV: RRR. Exam Vital Signs (Last) Date Time Temp Pulse Resp B/P Pulse Ox O2 Delivery O2 Flow Rate FiO2 11/28/16 12:02 36.0 75 18 137/67 95 Room Air Test 11/27/16 22:27 11/28/16 01:06 11/28/16 06:30 Magnesium Level 1.9mg/dL (1.6-2.6) Hold Contreras Top Tube Received (Received) Urine Color Straw (YELLOW) Urine Appearance Clear (CLEAR,HAZY) Urine pH 7.5 (5.0-8.0) Urine Specific [place] 1.032 (1.003-1.035) Urine Protein Negativemg/dL (NEG,TRACE) Urine Glucose (UA) Negativemg/dL (NEGATIVE) Urine Ketones Negativemg/dL (NEGATIVE) Urine Occult Blood Negative (NEGATIVE) Urine Nitrite Negative (NEGATIVE) Urine Bilirubin Negative (NEGATIVE) Urine Urobilinogen Normalmg/dL (NORMAL) Urine Leukocyte Esterase Negative (NEGATIVE) Urine RBC 0-2/hpf (0-2) Urine WBC 0-5/hpf (0-5) Urine Epithelial Cells Occasional/hpf (NONE-MOD) Urine Crystals None seen (NONE SEEN) Urine Bacteria None/hpf (NONE-FEW) Urine Hyaline Casts None/lpf (NONE) Urine Granular Casts None seen (NONE SEEN) Urine Waxy Casts None seen (NONE SEEN) Urine Red Blood Cell Casts None seen (NONE SEEN) Urine White Blood Cell Casts None seen (NONE SEEN) Urine Mucus None seen (None Seen) Urine Trichomonas None seen (NONE SEEN) Urine Yeast None (NONE SEEN) Urine Culture Reflexed Not indicated Hold Urine Received (Received) White Blood Count 5.6th/mm3 (3.8-10.1) Red Blood Count 3.92mil/mm3 (3.90-5.20) Hemoglobin 12.7g/dL (12.0-15.6) Hematocrit 38.6% (35.0-46.0) Mean Corpuscular Volume 98.5fL (81-100) Mean Corpuscular Hemoglobin 32.4pg (27.0-35.0) Mean Corpuscular Hemoglobin Concent 32.9% (32.0-37.0) Red Cell Distribution Width 13.2% (12.3-15.4) Platelet Count 173bil/L (150-400) Neutrophils (%) (Auto) 49.6% (40-74) Lymphocytes (%) (Auto) 38.6% (14-46) Monocytes (%) (Auto) 9.3% (4-12) Eosinophils (%) (Auto) 2.3% (0-5) Basophils (%) (Auto) 0.2% (0-3) Prothrombin Time 10.4sec (8.1-12.5) Prothromb Time International Ratio 0.97ratio Activated Partial Thromboplast Time 28.4sec (22.8-33.0) Sodium Level 140mEq/L (134-144) Potassium Level 4.3mEq/L (3.5-5.2) Chloride Level 105mEq/L (97-108) Carbon Dioxide Level 20mmol/L (18-29) Blood Urea Nitrogen 20mg/dL (8-27) Creatinine 1.18mg/dL (0.57-1.00) Estimat Glomerular Filtration Rate 63mL/min (>59) Glucose Level 123mg/dL (60-99) Calcium Level 9.2mg/dL (8.5-10.1) Total Bilirubin 0.4mg/dL (0.0-1.2) Aspartate Amino Transf (AST/SGOT) 106U/L (0-50) Alanine Aminotransferase (ALT/SGPT) 93U/L (0-32) Alkaline Phosphatase 105U/L (25-165) Troponin T 0.010ug/L (0.0-0.011) Total Protein 5.8g/dL (6.4-8.4) Albumin 3.4g/dL (3.4-5.0) Triglycerides Level 126mg/dL (0-149) Cholesterol Level 158mg/dL (100-199) LDL Cholesterol, Calculated 67.800mg/dL (0-99) VLDL Cholesterol 25.200mg/dL HDL Cholesterol 65mg/dL (>39) Cholesterol/HDL Ratio 2.43 (0.0-4.4) Discharge Medications Discharge Medications Amlodipine (Norvasc) 5 Mg Tablet 5 MG PO DAILY (Reported) Aspirin (Aspirin) 81 Mg Tablet 81 MG PO DAILY (Reported) Atorvastatin (Lipitor) 80 Mg Tablet 80 MG PO HS (Reported) Calcium Carbonate (Calcium Carbonate) 600 Mg Tablet 600 MG PO BIDWM (Reported) Furosemide (Furosemide) 40 Mg Tablet 40 MG PO DAILY (Reported) Insulin Glargine (Lantus U100 Insulin Vial) 100 Unit/Ml Vial 8 UNIT SUBQ BID ( Reported) Insulin Lispro (HumaLOG U100 Insulin Pen) 100 Unit/1 Ml Insuln.pen 5-12 UNIT SUBQ TIDWM (Reported) ON AVERAGE TAKES ABOUT 10 UNITS WITH EACH MEAL Mv-Mn/FA/Vit K/Lycop/Lut/Zeaxa (Ocuvite Eye + Multi Tablet) 200 Mcg-15 Mcg-150 Mcg-5 Mg-1 Mg Tablet 1 EACH PO DAILY (Reported) Omeprazole (Omeprazole) 40 Mg Capsule.dr 40 MG PO BIDWM (Reported) Potassium Chloride (Potassium Chloride) 10 Meq Tab.er.prt 10 MEQ PO TIDWM ( Reported) TAKE WITH FOOD As needed Acetaminophen (Acetaminophen) 325 Mg Tablet 650 MG PO Q4H PRN PRN For Fever ( Reported) Acetaminophen/Diphenhydramine (Tylenol Pm Ex-Strength Caplet) 500 Mg-25 Mg Tablet 1 EACH PO HS PRN PRN Insomnia (Reported) Docusate Sodium (Docusate Sodium) 250 Mg Capsule 250 MG PO BID PRN PRN For Constipation (Reported) Melatonin/Pyridoxine (Melatonin 5 mg Tablet) 1 Each Tablet 1 EACH PO HS PRN PRN Insomnia (Reported) Nitroglycerin SL (Nitroglycerin SL) 0.4 Mg Tab.subl 0.4 MG SL Q5MIN PRN PRN For Chest Pain (Reported) Sennosides (Senna) 8.6 Mg Tablet 8.6 MG PO DAILY PRN PRN For Constipation ( Reported) Tramadol (Tramadol) 50 Mg Tablet 50 MG PO Q6H PRN PRN For Pain (Reported) Additional med instructions Resume home medications as before Followup Plan Disposition: Home Follow-up plan 1. Followup with primary care provider within one week. Discharge Diet: Low fat, Low Sodium, Heart Healthy Discharge Activity: No restrictions Patient Instructions Seek immediate medical attention if any new or worsening signs or symptoms occur. Follow-up Provider: Rahul Webb MD Time spent 35 min copies to: Rahul Webb MD, Masoud Nov 28, 2016 16:44 1. Followup with primary care provider within one week. Discharge Diet: Low fat, Low Sodium, Heart Healthy Discharge Activity: No restrictions Patient Instructions Seek immediate medical attention if any new or worsening signs or symptoms occur. Follow-up Provider: Rahul Webb MD, Masoud Nov 28, 2016 16:44
--- NOTE | 2016-11-28 18:46 | DRSVH ---
PROCEDURE: ONE DAY PHARMACOLOGICAL STRESS TEST. Rest and pharmacological stress myocardial perfusio n SPECT with gated imaging and ejection fraction RADIOPHARMACEUTICAL: 8.7 mCi Tc-99m tetrofosmin IV at rest and 32.0 mCi Tc-99m tetrofosmin IV at pea k effect of pharmacological stress. A [id number] was performed. INDICATIONS: Chest pain. TECHNIQUE: Radiopharmaceutical was injected at peak stress test, and also at rest. SPECT images wer e obtained. SPECT myocardial perfusion images were displayed in short axis, horizontal long axis, an d vertical long axis views. Gated images were reviewed using [employer] software. COMPARISON: None. CARDIAC STRESS: A pharmacologic stress test was performed under the supervision of the attending sta ff, using an infusion of Lexiscan as per protocol. Hemodynamic Data: There is normal blood pressure and heart rate response to pharmacologic stress. Symptoms: The patient denied chest pain. Aminophylline: 100 mg of IV aminophylline was given for symptoms of nausea and headache. EKG: Baseline rhythm was sinus with left bundle branch block. Stress EKG did not reveal any new sig nificant ischemic changes or significant arrhythmias. FINDINGS: Raw Data: There appears to be adequate myocardial uptake. There was increased subdiaphragmatic acti vity. Left Ventricular Function: Resting and stress LV ejection fraction is 87%. Left ventricular functio n appears to be hyperdynamic. No obvious wall motion abnormalities. Resting LV end diastolic volume is 54 mL. On my visual inspection, there is no obvious transient ischemic dilatation. Myocardial Perfusion: The patient has normal myocardial perfusion. IMPRESSION: This is a normal myocardial perfusion study without any obvious evidence of ischemia or infarction. Hyperdynamic left ventricular function. Overall, this is a low-risk myocardial perfusio n study. Dictated by: Gregorio Beth M.D. on 11/28/2016 at 14:24 Transcribed by: SUSANA on 11/28/2016 at 21:46 Approved by: Gregorio Beth M.D. on 11/29/2016 at 12:45
[2016-11-28] MEDS ORDERED: Insulin GLARgine 100 Unit/mL Syringe SUBQ SCH (21:00)
== END 2016-11-28 16:05 | disposition left against medical advice (07) ==
LOC: SED 21:41 → MPC 11-28 00:49
PROVIDERS: ADMIT Internal Medicine; ATTEND Internal Medicine
DX: R07.9 Chest pain, unspecified (principal); R74.8 Abnormal levels of other serum enzymes; I25.10 Atherosclerotic heart disease of native coronary artery without angina pectoris; I25.2 Old myocardial infarction; E11.9 Type 2 diabetes mellitus without complications; K21.9 Gastro-esophageal reflux disease without esophagitis; I10 Essential (primary) hypertension; F32.9 Major depressive disorder, single episode, unspecified; E78.5 Hyperlipidemia, unspecified; M19.90 Unspecified osteoarthritis, unspecified site; Z95.5 Presence of coronary angioplasty implant and graft; Z95.1 Presence of aortocoronary bypass graft; Z79.82 Long term (current) use of aspirin; Z79.4 Long term (current) use of insulin
CPT/HCPCS: 36415; 71275; 74177; 78452; 80053; 80061; 81000; 83036; 83735; 84484; 85025; 85610; 85730; 93005; 93017; 96374; 99285; A9502; C8929; G0378; J0280; J1644; J1815; J2785; J3490; J7030; J7040; Q9967